=== PATIENT | female | born 1940 | race Caucasian/White ===

== ENCOUNTER → 2016-09-27 | Outpatient (CLI) | payer MEDICARE ==
[~2016-09-27] MED LIST: ADVAIR DIS1 PUFF/DOS IH; ASA325 MG PO; HYDRODIURIL-DPS25 MG PO; KLOR-CON 1010 MEQ PO; MAALOX DPS30 ML PO; NITROSTAT0.4 MG SL; NORCO 5-325 TA1 EACH PO; PRILOSEC DPS20 MG PO; PROAIR HFA8.5 GM IH; SURFAK DPS240 MG PO; SYNTHROID DPS0.1 MG PO; TENORMIN-DPS25 MG PO; TYLENOL DPS325 MG PO; XALATAN2.5 ML OU; ZESTRIL DPS5 MG PO; ZOCOR DPS40 MG PO
== END | disposition home or self-care (01) ==
LOC: RAD.S 09-12 09:23
DX: Z12.31 Encounter for screening mammogram for malignant neoplasm of breast (principal); Z13.820 Encounter for screening for osteoporosis; Z78.0 Asymptomatic menopausal state; M85.80 Other specified disorders of bone density and structure, unspecified site